=== PATIENT | female | born 1975 | race Caucasian/White ===

== ENCOUNTER → 2020-06-07 | Outpatient (CLI) | payer OTHER ==
[2014-07-14 02:04] VITALS: BP 107/67
== END | disposition home or self-care (01) ==
LOC: LAB 13:18
PROVIDERS: ATTEND Internal Medicine Pulmonary Disease
DX: R05 Cough (principal); R50.9 Fever, unspecified; Z20.828 Contact with and (suspected) exposure to other viral communicable diseases; Z87.09 Personal history of other diseases of the respiratory system
CPT/HCPCS: C9803; U0003

== ENCOUNTER → 2020-10-17 | Outpatient (CLI) | payer OTHER ==
[2014-07-14 02:04] VITALS: BP 107/67
== END ==
LOC: LAB 10:12
PROVIDERS: ATTEND Internal Medicine Pulmonary Disease
DX: R05 Cough (principal); R50.9 Fever, unspecified; R51.9 Headache, unspecified; R19.7 Diarrhea, unspecified; J02.9 Acute pharyngitis, unspecified; Z20.828 Contact with and (suspected) exposure to other viral communicable diseases
CPT/HCPCS: U0003